=== PATIENT | female | born 1985 | race Caucasian/White ===

== ENCOUNTER 2023-04-14 17:25 | Emergency (ER) | payer MEDICAID ==
[~2023-04-14] VITALS: Ht 162.6 cm; Wt 72.8 kg
[2023-04-14] MEDS ORDERED: dexamethasone sod phosphate 10mg/ml inj IM STA (17:39)
[2023-04-14] MEDS ORDERED: cyclobenzaprine 10mg tablet PO ONE (17:40)
[2023-04-14] MEDS ORDERED: HYDROcodone/acetaminophen 5mg/325mg tablet PO ONE (17:40)
[2023-04-14] MEDS ORDERED: ondansetron 4mg rapidly disintigrating tab PO ONE (17:40)
[2023-04-14] MEDS ORDERED: ketorolac trometh inj. 60 MG/2 ML VIAL IM ONE (17:40)
[2023-04-14] MEDS ORDERED: CYCL-1 PO ×2 (18:51→20:06)
[2023-04-14] MEDS ORDERED: LIDO700A32 TOP ×2 (18:51→20:06)
[2023-04-14 20:12] VITALS: BP 134/76; PULSE 74; RESP 18; TEMP 98.2; O2SAT 99
== END 2023-04-14 20:15 | disposition home or self-care (01) ==
LOC: ER 17:26
DX: S39.012A Strain of muscle, fascia and tendon of lower back, initial encounter (principal); X58.XXXA Exposure to other specified factors, initial encounter; Y93.89 Activity, other specified; Y92.89 Other specified places as the place of occurrence of the external cause; Y99.8 Other external cause status
CPT/HCPCS: 72100; 96372; 99284; J1100; J1885